=== PATIENT | male | born 1950 | race Caucasian/White ===

== ENCOUNTER 2018-08-08 01:08 | Outpatient (CLI) | payer MEDICARE, BC, SELFPAY ==
[2018-08-08 11:58] LABS: Anion Gap 9.6 mmol/L (3-11); BUN 14 mg/dL (7-18); CO2 27.4 mmol/L (21.0-32.0); CREATININE 1.14 mg/dL (0.70-1.30); Calcium 8.5 mg/dL (8.5-10.1); Chloride 103 mmol/L (98-107); Cholesterol 102 mg/dL (50-200); Glucose 91 mg/dL (70-100); HDL Cholesterol 39 mg/dL (40-60); LDL CHOLESTEROL 53 mg/dL (<100); Potassium 4.2 mmol/L (3.5-5.1); Sodium 140 mmol/L (136-145); Triglyceride 141 mg/dL (30-150)
== END 2018-08-08 01:28 ==
PROVIDERS: PCP Family Medicine; Visit Provider Family Medicine
DX: I10 Essential (primary) hypertension (principal)
CPT/HCPCS: 36415; 80048; 80061; 83721

== ENCOUNTER 2018-12-15 17:18 | Emergency (ER) | payer MEDICARE, BC, SELFPAY ==
[2018-12-15 17:46] VITALS: BP 149/72; PULSE 57; RESP 14; TEMP 36.3; O2SAT 97
--- NOTE | 2018-12-15 17:53 | DI.RAD_ITS ---
SYMPTOM/DIAGNOSIS: MEDIAL, LATERAL SWELLING, PAIN LEFT ANKLE: There is soft tissue swelling around the malleoli. There is a question of ankle mortise widening. No fracture or talar dome defect is seen. Heel spurs are noted. There are mild underlying degenerative changes. IMPRESSION: Soft tissue swelling and question of ankle mortise widening. No fracture is visible.
--- NOTE | 2018-12-15 17:53 | W.ED.GENAD ---
Discharge Plan Disposition Patient Disposition: HOME Condition: Improving Discharge Details Chief Complaint: Orthopedic Clinical Impression: Left ankle sprain Primary Care Provider: Basim Basilio ED Provider: Dakota Coats Home Meds and New Rx's Prescriptions: Continued amlodipine 5 mg tablet 5 mg PO DAILY RF: 0 flaxseed oil 1,000 mg capsule 1,000 mg PO DAILY RF: 0 atorvastatin 80 mg tablet 80 mg PO DAILY Qty: 90 RF: 4 oxybutynin chloride 5 mg tablet extended release 24hr 5 mg PO DAILY Qty: 90 RF: 4 pantoprazole 40 mg tablet,delayed release (DR/EC) 40 mg PO DAILY Qty: 90 RF: 4 clopidogrel [Plavix] 75 mg tablet 75 mg PO DAILY Qty: 90 RF: 4 metoprolol succinate 50 mg tablet extended release 24 hr 50 mg PO DAILY Qty: 90 RF: 4 vitamin B complex 1 EACH tablet 1 ea PO QAM RF: 0 folic acid 1 MG tablet 1 mg PO QAM RF: 0 cholecalciferol (vitamin D3) [Vitamin D3] 400 UNIT tablet 400 unit PO QAM RF: 0 nitroglycerin 0.4 MG tablet, sublingual 0.4 mg Buccal ONCE RF: 0 aspirin [Aspirin Low-Strength] 81 MG tablet,chewable 1 tab PO DAILY RF: 0 tamsulosin 0.4 mg capsule 0.8 mg PO DAILY Qty: 180 RF: 4 Discharge Instructions Instructions: Ankle Sprain (ED) Additional Instructions: Elevate above the level of the heart to reduce pain and swelling. May use lace up ankle stabilizer for 5-10 days time as needed. Ice to reduce discomfort. Return for any acute concern Medical Decision Making 68-year-old male presents from home after twisting his ankle walking down a flight of stairs yesterday. He has medial greater than lateral tenderness but is weightbearing. Differential diagnosis includes avulsion fracture versus sprain. Patient referred for x-ray which does not reveal any evidence of acute fracture. We will offer her a lace up ankle brace. He is stable for outpatient management of ankle sprain. HPI General Mode of arrival: ambulatory. Date/Time Provider Initiated Documentation: 12/15/18 17:20. Limitations to Documentation: no limitations. Information obtained by: patient. History of Present Illness 68 year old M presents to the emergency department with the chief complaint of Left ankle pain and swelling, described as moderate, Quality is described as aching, and is localized to the left and lower extremity. Patient reports no radiation. Patient started experiencing this day(s) and it has been constant. Rest improves symptom(s), Movement worsens symptoms . Patient did receive the following treatments prior to arrival, none Related Data Home Medications Medication Instructions Recorded Confirmed cholecalciferol (vitamin D3) 400 unit PO QAM 06/15/13 12/15/18 [Vitamin D3] folic acid 1 mg PO QAM 06/15/13 12/15/18 vitamin B complex 1 ea PO QAM 06/15/13 12/15/18 aspirin [Aspirin Low-Strength] 1 tab PO DAILY tab.chew 03/06/16 12/15/18 nitroglycerin 0.4 mg BUCCAL ONCE tab-cap 03/06/16 12/15/18 amlodipine 5 mg tablet 5 mg PO DAILY 07/31/18 12/15/18 atorvastatin 80 mg tablet 80 mg PO DAILY #90 tab 07/31/18 12/15/18 clopidogrel 75 mg tablet 75 mg PO DAILY #90 tab-cap 07/31/18 12/15/18 flaxseed oil 1,000 mg capsule 1,000 mg PO DAILY 07/31/18 12/15/18 metoprolol succinate ER 50 mg 50 mg PO DAILY #90 tab 07/31/18 12/15/18 tablet,extended release 24 hr oxybutynin chloride ER 5 mg 5 mg PO DAILY #90 tab-cap 07/31/18 12/15/18 tablet,extended release 24 hr pantoprazole 40 mg tablet,delayed 40 mg PO DAILY #90 tab 07/31/18 12/15/18 release tamsulosin 0.4 mg capsule 0.8 mg PO DAILY #180 tab-cap 08/01/18 12/15/18 Previous Rx's Medication Instructions Recorded atorvastatin 80 mg tablet 80 mg PO DAILY #90 tab 07/31/18 clopidogrel 75 mg tablet 75 mg PO DAILY #90 tab-cap 07/31/18 metoprolol succinate ER 50 mg 50 mg PO DAILY #90 tab 07/31/18 tablet,extended release 24 hr oxybutynin chloride ER 5 mg 5 mg PO DAILY #90 tab-cap 07/31/18 tablet,extended release 24 hr pantoprazole 40 mg tablet,delayed 40 mg PO DAILY #90 tab 07/31/18 release tamsulosin 0.4 mg capsule 0.8 mg PO DAILY #180 tab-cap 08/01/18 Allergies Allergy/AdvReac Type Severity Reaction Status Date / Time No Known Allergies Allergy Unverified 12/15/18 17:49 General Stated Complaint: Orthopedic MALCOM: 4 Review of Systems Review of Systems 4 systems reviewed and otherwise negative [facility] Medical History BPH (benign prostatic hyperplasia) CAD (coronary artery disease) Hyperlipidemia Hypertension SCOTT (obstructive sleep apnea) Surgical History Correction, Hammertoe (~08/2010) UPPP (Uvulopalatopharyngoplasty) Family History Mother Diabetes Essential hypertension Alzheimer disease Heart disease Hyperlipidemia Father Essential hypertension Heart disease Hyperlipidemia Sister Essential hypertension Melanoma Brother Essential hypertension Maternal Grandfather Diabetes Stroke Maternal Grandmother No problems noted. Paternal Grandfather Heart disease Stroke Paternal Grandmother Diabetes Stroke Sister No problems noted. Social History household members: other details: 3 current occupational status: retired pets and animals: Yes pets and animals: cat(s) frequency: 1-2 times per week duration: 15-30 minutes/day Smoking/Tobacco Use Status: Never alcohol intake: current alcohol intake frequency: a few times a week substance use type: does not use yocasta/hindu: Confucianist special yocasta needs: No Exam Narrative Exam Narrative: GEN: awake, alert, oriented 3. Pleasant, well groomed, interactive. HEAD: Normocephalic, atraumatic ENT: Mucous membranes moist, oropharynx unremarkable, External ear exam unremarkable EYES: PERRL, EOMI EXT: Full ROM, left medial greater than lateral malleoli are swollen and tender. Range of motion intact. 2+ DP bilaterally. Sensation intact throughout Neuro: Grossly normal neurologic exam, conversant, interactive. Psych: Speech fluent, thoughts congruent, affect normal Course Vital Signs Temperature 36.3 C L 12/15/18 17:46 Pulse 57 L 12/15/18 17:46 Respiratory Rate 14 12/15/18 17:46 Blood Pressure 149/72 H 12/15/18 17:46 Pulse Oximetry 97 12/15/18 17:46 Temperature 36.3 C L 12/15/18 17:46 Temperature Source Temporal Artery Scan 12/15/18 17:46 Pulse 57 L 12/15/18 17:46 Respiratory Rate 14 12/15/18 17:46 Respiratory Effort Non-Labored 12/15/18 17:47 Blood Pressure 149/72 H 12/15/18 17:46 Pulse Oximetry 97 12/15/18 17:46 Oxygen Delivery Method Room Air 12/15/18 17:46 Oxygen Flow Rate 0 12/15/18 17:46 Pain Level 3 12/15/18 17:51
--- NOTE | 2018-12-15 17:56 | ED.GENADUL_ITS ---
Discharge Plan Disposition Patient Disposition: HOME Condition: Improving Discharge Details Chief Complaint: Orthopedic Clinical Impression: Left ankle sprain Primary Care Provider: Basim Basilio ED Provider: Dakota Coats Home Meds and New Rx's Prescriptions: Continued amlodipine 5 mg tablet 5 mg PO DAILY RF: 0 flaxseed oil 1,000 mg capsule 1,000 mg PO DAILY RF: 0 atorvastatin 80 mg tablet 80 mg PO DAILY Qty: 90 RF: 4 oxybutynin chloride 5 mg tablet extended release 24hr 5 mg PO DAILY Qty: 90 RF: 4 pantoprazole 40 mg tablet,delayed release (DR/EC) 40 mg PO DAILY Qty: 90 RF: 4 clopidogrel [Plavix] 75 mg tablet 75 mg PO DAILY Qty: 90 RF: 4 metoprolol succinate 50 mg tablet extended release 24 hr 50 mg PO DAILY Qty: 90 RF: 4 vitamin B complex 1 EACH tablet 1 ea PO QAM RF: 0 folic acid 1 MG tablet 1 mg PO QAM RF: 0 cholecalciferol (vitamin D3) [Vitamin D3] 400 UNIT tablet 400 unit PO QAM RF: 0 nitroglycerin 0.4 MG tablet, sublingual 0.4 mg Buccal ONCE RF: 0 aspirin [Aspirin Low-Strength] 81 MG tablet,chewable 1 tab PO DAILY RF: 0 tamsulosin 0.4 mg capsule 0.8 mg PO DAILY Qty: 180 RF: 4 Discharge Instructions Instructions: Ankle Sprain (ED) Additional Instructions: Elevate above the level of the heart to reduce pain and swelling. May use lace up ankle stabilizer for 5-10 days time as needed. Ice to reduce discomfort. Return for any acute concern Medical Decision Making 68-year-old male presents from home after twisting his ankle walking down a flight of stairs yesterday. He has medial greater than lateral tenderness but is weightbearing. Differential diagnosis includes avulsion fracture versus sprain. Patient referred for x-ray which does not reveal any evidence of acute fracture. We will offer her a lace up ankle brace. He is stable for outpatient management of ankle sprain. HPI General Mode of arrival: ambulatory . Date/Time Provider Initiated Documentation: 12/15/18 17:20 . Limitations to Documentation: no limitations . Information obtained by: patient . History of Present Illness 68 year old M presents to the emergency department with the chief complaint of Left ankle pain and swelling, described as moderate, Quality is described as aching, and is localized to the left and lower extremity. Patient reports no radiation. Patient started experiencing this day(s) and it has been constant. Rest improves symptom(s), Movement worsens symptoms . Patient did receive the following treatments prior to arrival, none Related Data Home Medications Medication Instructions Recorded Confirmed cholecalciferol (vitamin D3) 400 unit PO QAM 06/15/13 12/15/18 [Vitamin D3] folic acid 1 mg PO QAM 06/15/13 12/15/18 vitamin B complex 1 ea PO QAM 06/15/13 12/15/18 aspirin [Aspirin Low-Strength] 1 tab PO DAILY tab.chew 03/06/16 12/15/18 nitroglycerin 0.4 mg BUCCAL ONCE tab-cap 03/06/16 12/15/18 amlodipine 5 mg tablet 5 mg PO DAILY 07/31/18 12/15/18 atorvastatin 80 mg tablet 80 mg PO DAILY #90 tab 07/31/18 12/15/18 clopidogrel 75 mg tablet 75 mg PO DAILY #90 tab-cap 07/31/18 12/15/18 flaxseed oil 1,000 mg capsule 1,000 mg PO DAILY 07/31/18 12/15/18 metoprolol succinate ER 50 mg 50 mg PO DAILY #90 tab 07/31/18 12/15/18 tablet,extended release 24 hr oxybutynin chloride ER 5 mg 5 mg PO DAILY #90 tab-cap 07/31/18 12/15/18 tablet,extended release 24 hr pantoprazole 40 mg tablet,delayed 40 mg PO DAILY #90 tab 07/31/18 12/15/18 release tamsulosin 0.4 mg capsule 0.8 mg PO DAILY #180 tab-cap 08/01/18 12/15/18 Previous Rx's Medication Instructions Recorded atorvastatin 80 mg tablet 80 mg PO DAILY #90 tab 07/31/18 clopidogrel 75 mg tablet 75 mg PO DAILY #90 tab-cap 07/31/18 metoprolol succinate ER 50 mg 50 mg PO DAILY #90 tab 07/31/18 tablet,extended release 24 hr oxybutynin chloride ER 5 mg 5 mg PO DAILY #90 tab-cap 07/31/18 tablet,extended release 24 hr pantoprazole 40 mg tablet,delayed 40 mg PO DAILY #90 tab 07/31/18 release tamsulosin 0.4 mg capsule 0.8 mg PO DAILY #180 tab-cap 08/01/18 Allergies Allergy/AdvReac Type Severity Reaction Status Date / Time No Known Allergies Allergy Unverified 12/15/18 17:49 General Stated Complaint: Orthopedic MALCOM: 4 Review of Systems Review of Systems 4 systems reviewed and otherwise negative [facility] Medical History BPH (benign prostatic hyperplasia) CAD (coronary artery disease) Hyperlipidemia Hypertension SCOTT (obstructive sleep apnea) Surgical History Correction, Hammertoe (~08/2010) UPPP (Uvulopalatopharyngoplasty) Family History Mother Diabetes Essential hypertension Alzheimer disease Heart disease Hyperlipidemia Father Essential hypertension Heart disease Hyperlipidemia Sister Essential hypertension Melanoma Brother Essential hypertension Maternal Grandfather Diabetes Stroke Maternal Grandmother No problems noted. Paternal Grandfather Heart disease Stroke Paternal Grandmother Diabetes Stroke Sister No problems noted. Social History household members: other details: 3 current occupational status: retired pets and animals: Yes pets and animals: cat(s) frequency: 1-2 times per week duration: 15-30 minutes/day Smoking/Tobacco Use Status: Never alcohol intake: current alcohol intake frequency: a few times a week substance use type: does not use yocasta/mormonism: Episcopal special yocasta needs: No Exam Narrative Exam Narrative: GEN: awake, alert, oriented 3. Pleasant, well groomed, interactive. HEAD: Normocephalic, atraumatic ENT: Mucous membranes moist, oropharynx unremarkable, External ear exam unremarkable EYES: PERRL, EOMI EXT: Full ROM, left medial greater than lateral malleoli are swollen and tender. Range of motion intact. 2+ DP bilaterally. Sensation intact throughout Neuro: Grossly normal neurologic exam, conversant, interactive. Psych: Speech fluent, thoughts congruent, affect normal Course Vital Signs Temperature 36.3 C L 12/15/18 17:46 Pulse 57 L 12/15/18 17:46 Respiratory Rate 14 12/15/18 17:46 Blood Pressure 149/72 H 12/15/18 17:46 Pulse Oximetry 97 12/15/18 17:46 Temperature 36.3 C L 12/15/18 17:46 Temperature Source Temporal Artery Scan 12/15/18 17:46 Pulse 57 L 12/15/18 17:46 Respiratory Rate 14 12/15/18 17:46 Respiratory Effort Non-Labored 12/15/18 17:47 Blood Pressure 149/72 H 12/15/18 17:46 Pulse Oximetry 97 12/15/18 17:46 Oxygen Delivery Method Room Air 12/15/18 17:46 Oxygen Flow Rate 0 12/15/18 17:46 Pain Level 3 12/15/18 17:51
--- NOTE | 2018-12-15 18:27 | DI.VRAD_ITS ---
EXAM: XR Left Ankle Complete, 3 or more Views EXAM DATE/TIME: 12/15/2018 6:10 PM CLINICAL HISTORY: 68 years old, male; Injury or trauma; Fall; Initial encounter; Swelling (edema); Ankle; Left; Injury details: Medial discoloration TECHNIQUE: XR Left ankle 3 or more views. COMPARISON: No relevant prior studies available. FINDINGS: Bones/joints: There is a large Achilles tendon spur. There is an inferior calcaneal spur. There is no acute fracture or dislocation. Soft tissues: There is soft tissue swelling about the ankle. This is suspicious for a soft tissue injury. Clinical correlation is recommended. IMPRESSION: Soft tissue swelling about the ankle. This is suspicious for a soft tissue injury. This can be followed up with an MRI examination of the ankle if clinically warranted. Spurs as described above. Dictated and Authenticated by: Justin Schultz MD. Ordering:NILESH Duncan MD
== END 2018-12-15 18:44 | disposition home or self-care (01) ==
PROVIDERS: Emergency Provider Emergency Medicine; PCP Family Medicine
DX: S93.402A Sprain of unspecified ligament of left ankle, initial encounter (principal); X50.1XXA Overexertion from prolonged static or awkward postures, initial encounter
CPT/HCPCS: 29515; 99283; 73610; 99282; L1902

== ENCOUNTER 2019-08-06 01:40 | Outpatient (CLI) | payer MEDICARE, BC, SELFPAY ==
[2019-08-06 12:26] LABS: Anion Gap 11.3 mmol/L (3-11); BUN 18 mg/dL (7-18); CO2 25.7 mmol/L (21.0-32.0); CREATININE 1.21 mg/dL (0.70-1.30); Calcium 8.6 mg/dL (8.5-10.1); Chloride 105 mmol/L (98-107); Estimated GFR 59.12 (mL/min/1.73m2); Glucose 105 mg/dL (70-100); Potassium 4.4 mmol/L (3.5-5.1); Sodium 142 mmol/L (136-145)
== END 2019-08-06 02:00 ==
PROVIDERS: PCP Family Medicine; Visit Provider Family Medicine
DX: I10 Essential (primary) hypertension (principal)
CPT/HCPCS: 36415; 80048

== ENCOUNTER → 2019-10-23 09:30 | Outpatient (BNVA) | payer MEDICARE, BC, SELFPAY | PROVIDERS: PCP Family Medicine; Referring Provider Family Medicine; Visit Provider Physical Therapy Assistant | DX: Z12.11 Encounter for screening for malignant neoplasm of colon (principal); I10 Essential (primary) hypertension; Z79.01 Long term (current) use of anticoagulants; Z95.5 Presence of coronary angioplasty implant and graft ==

== ENCOUNTER 2019-11-06 09:09 | Day surgery (SDC) | payer MEDICARE, BC, SELFPAY ==
[2019-11-06 09:40] VITALS: BP 141/93; PULSE 83; RESP 16; TEMP 36.1; O2SAT 97
[2019-11-06] MEDS: Lactated Ringers 1,000 ML 80 ML IV (09:48)
--- NOTE | 2019-11-06 10:13 | W.PM.DSUDISC ---
Discharge Plan Disposition Patient Disposition: HOME Condition: Good Discharge Details Reason For Visit: Colonoscopy Attending Provider: Jess Hernandez Primary Care Provider: Basim Basilio Home Meds and New Rx's Prescriptions: Continued flaxseed oil 1,000 mg capsule 1,000 mg PO DAILY RF: 0 amlodipine 5 mg tablet 5 mg PO DAILY Qty: 90 RF: 4 atorvastatin 80 mg tablet 80 mg PO DAILY Qty: 90 RF: 4 clopidogrel [Plavix] 75 mg tablet 75 mg PO DAILY Qty: 90 RF: 4 metoprolol succinate 50 mg tablet extended release 24 hr 75 mg PO DAILY Qty: 135 RF: 4 oxybutynin chloride 5 mg tablet extended release 24hr 5 mg PO DAILY Qty: 90 RF: 4 pantoprazole 40 mg tablet,delayed release (DR/EC) 40 mg PO DAILY Qty: 90 RF: 4 tamsulosin 0.4 mg capsule 0.8 mg PO DAILY Qty: 180 RF: 4 vitamin B complex 1 EACH tablet 1 ea PO QAM RF: 0 folic acid 1 MG tablet 1 mg PO QAM RF: 0 cholecalciferol (vitamin D3) [Vitamin D3] 400 UNIT tablet 400 unit PO QAM RF: 0 nitroglycerin 0.4 MG tablet, sublingual 0.4 mg Buccal ONCE RF: 0 aspirin [Aspirin Low-Strength] 81 MG tablet,chewable 1 tab PO DAILY RF: 0 Discontinued polyethylene glycol 3350 17 gram/dose powder 238 g PO ONCE Qty: 238 RF: 0 bisacodyl [Dulcolax (bisacodyl)] 5 mg tablet,delayed release (DR/EC) 5 mg PO ONCE Qty: 4 RF: 0 Discharge Instructions Additional Instructions: Findings: Your colonoscopy showed mild diverticulosis Follow up: No further screening colonoscopy is needed but can be considered if you develop new symptoms. Please call if you develop: fevers >101.5 Nausea or Vomiting Abdominal pain that is not transient DAY SURGERY UNIT POST COLONOSCOPY INSTRUCTIONS 1. Because there will be medication in your system for the next 24 hours, you may feel a little sleepy. Your coordination will be affected. Therefore: a. Do not drive or operate dangerous equipment for 24 hours. b. Do not drink alcohol beverages for 24 hours (not even beer). c. Plan to go home and rest for the day. 2. Generally there are no restrictions on your activity after a day or so has gone by, but you may feel a bit fatigued for a few days. 3 After you arrive home you may have a light meal and return to a normal diet as you can tolerate it without feeling sick to your stomach. 4. After surgery, you may feel pain or discomfort. This should be only transient, but if it persists please contact your doctor. 5. If there are any questions regarding the findings of your procedure, please feel free to contact your doctor. 6. If you are unable to contact your doctor with a problem, contact the hospital at [phone]. 7. Continue all your regular medications unless directed otherwise. I understand the above instructions and have no questions. Signature of Patient or Responsible Adult Escort Date/Time Name of Responsible Adult Escort Signature of Nurse Date/Time Activity:: Activity as Tolerated Diet:: As Tolerated Discharge Orders Discharge Orders: Discharge Order (Routine); Ordered 11/06/19 Ordered By: Jess Hernandez DS: Diagnosis Discharge Diagnosis (1) Diverticulosis: Status: Acute
[2019-11-06 12:15] VITALS: BP 128/85; PULSE 65; RESP 18; TEMP 36.3; O2SAT 96
--- NOTE | 2019-11-10 10:28 | COLE_ITS ---
REPORT OF OPERATIVE PROCEDURE DATE OF PROCEDURE November 06, 2019 PREOPERATIVE DIAGNOSIS Screening. POSTOPERATIVE DIAGNOSIS Diverticulosis. PROCEDURE Colonoscopy. SURGEON Jess Hernandez M.D. ANESTHESIA General. INDICATIONS This is a 69-year-old man who presents for a screening colonoscopy. His last colonoscopy in 2008 was normal. He has no family history of colon cancer or symptoms. PROCEDURE The patient was placed in the left Lyons position. Propofol was titrated to sedation. Digital rectal e xamination revealed no abnormalities. The scope was advanced to the cecum without difficulty. The ile ocecal valve and appendiceal orifice were clearly identified. The scope was slowly withdrawn with no abnormalities seen within the ascending, transverse, descending and sigmoid colon or rectum, includin g on retroflexed view. He was noted to have a mild amount of diverticular change in the sigmoid regio n. He tolerated the procedure well and was stable to Recovery. He will not need a further screening colonoscopy, but this can be reconsidered if symptoms arise. CC: Basim Basilio M.D.
== END 2019-11-06 12:40 | disposition home or self-care (01) ==
PROVIDERS: PCP Family Medicine; Visit Provider Surgery
PROC: 0DJD8ZZ Inspection of Lower Intestinal Tract, Via Natural or Artificial Opening Endoscopic (ICD-10-PCS; CPT 45378; principal; 2019-11-06 10:30)
DX: Z12.11 Encounter for screening for malignant neoplasm of colon (principal); K57.30 Diverticulosis of large intestine without perforation or abscess without bleeding; I10 Essential (primary) hypertension; G47.33 Obstructive sleep apnea (adult) (pediatric)
CPT/HCPCS: G0121; J2250; J3010

== ENCOUNTER 2020-08-15 03:16 | Outpatient (CLI) | payer MEDICARE, BC, SELFPAY ==
[2020-08-15 12:29] LABS: Anion Gap 4.1 mmol/L (3-11); BUN 14 mg/dL (7-18); CO2 31.9 mmol/L (21.0-32.0); CREATININE 1.18 mg/dL (0.70-1.30); Calcium 8.9 mg/dL (8.5-10.1); Chloride 103 mmol/L (98-107); Glucose 88 mg/dL (74-106); Potassium 4.3 mmol/L (3.5-5.1); Sodium 139 mmol/L (136-145)
== END 2020-08-15 03:36 ==
PROVIDERS: PCP Nurse Practitioner; Visit Provider Family Medicine
DX: I10 Essential (primary) hypertension (principal)
CPT/HCPCS: 36415; 80048

== ENCOUNTER 2021-09-26 09:54 | Outpatient (CLI) | payer MEDICARE, BC, SELFPAY ==
[2021-09-27 02:31] LABS: CREATININE 1.3 mg/dL (0.70-1.30); Calculated LDL 51 mg/dL (<100); Cholesterol 114 mg/dL (<200); Estimated GFR 54.11 (mL/min/1.73m2); HDL Cholesterol 47 mg/dL (40-60); Triglyceride 81 mg/dL (<150)
== END 2021-09-26 09:55 | disposition home or self-care (01) ==
LOC: LOS 09:54
PROVIDERS: PCP Nurse Practitioner; Visit Provider Nurse Practitioner
DX: I10 Essential (primary) hypertension (principal); I25.10 Atherosclerotic heart disease of native coronary artery without angina pectoris
CPT/HCPCS: 36415; 80061; 82565

== ENCOUNTER 2021-09-27 00:36 | Outpatient (CLI) | payer MEDICARE, BC, SELFPAY ==
--- NOTE | 2021-09-27 06:45 | DI.RAD_ITS ---
Exam(s) XR KNEE LT 4V AP,LAT,YADIEL,PAT EXAM: XR KNEE LT 4V AP,LAT,YADIEL,PAT CLINICAL HISTORY: fall, pain on patella,W19.XXXA. TECHNIQUE: 2D digital imaging was performed. COMPARISON: CR XR ANKLE LT COMPLETE from 12/15/2018 FINDINGS: There is no evidence of fracture nor prominent joint effusion. There are moderate degenerative austin es in all 3 compartments. Mild joint space narrowing. Marginal osteophytes in all 3 compartments. No osseous lesions. IMPRESSION: Moderate degenerative changes. DATA REPOSITORY: RADIATION DOSE DELIVERED:
== END 2021-09-27 00:56 ==
PROVIDERS: PCP Nurse Practitioner; Visit Provider Nurse Practitioner
DX: W19.XXXA Unspecified fall, initial encounter (principal); M25.562 Pain in left knee; M17.12 Unilateral primary osteoarthritis, left knee
CPT/HCPCS: 73564

== ENCOUNTER 2022-05-29 02:07 | Outpatient (CLI) | payer MEDICARE, BC, SELFPAY ==
[2022-05-29 01:17] LABS: COVID-19 RT-PCR UVMMC Result Negative (Negative)
== END 2022-05-29 02:08 | disposition home or self-care (01) ==
LOC: LBO 02:08
PROVIDERS: PCP Nurse Practitioner; Visit Provider Nurse Practitioner Family
DX: Z20.822 Contact with and (suspected) exposure to COVID-19 (principal)
CPT/HCPCS: U0003

== ENCOUNTER 2023-03-18 01:27 | Outpatient (CLI) | payer MEDICARE, BC, SELFPAY ==
--- NOTE | 2023-03-18 07:15 | DI.RAD_ITS ---
Exam(s) XR CHEST 2V PA LATERAL EXAM: XR CHEST 2V PA LATERAL CLINICAL HISTORY: increased cough,r05.9 TECHNIQUE: 2D digital imaging was performed of the chest. Two images were obtained. PA and lateral views were obtained. COMPARISON: CR PORTABLE CHEST ONE VIEW from 02/28/2016 FINDINGS: MEDIASTINUM: Normal. HEART: Normal. PULMONARY VASCULATURE: Normal. LUNGS: Clear. PLEURAL SPACE: No pleural effusion or pneumothorax. BONE:Within normal limits for the patient's age. OTHER FINDINGS:Normal. IMPRESSION: No acute pulmonary findings. DATA REPOSITORY: RADIATION DOSE DELIVERED:
== END 2023-03-18 01:47 ==
PROVIDERS: PCP Nurse Practitioner Family; Visit Provider Nurse Practitioner Family
DX: R05.9 Cough, unspecified (principal)
CPT/HCPCS: 71046

== ENCOUNTER 2023-03-26 02:54 | Outpatient (CLI) | payer MEDICARE, BC, SELFPAY ==
[2023-03-26] MEDS: Albuterol HFA 18 GM 200 PUFF INH IH (11:28)
[2023-03-26] MEDS: Inhaler, Assist Device 1 EACH MC (11:29)
--- NOTE | 2023-03-26 14:40 | W.PFT ---
Date of service: 03/26/23 Time of Service: 10:00 Pulmonary Function Test Result Indications: Cough Interpretation Spirometry: There is no airflow limitation. There is no significant bronchodilator response. Lung Volumes: Normal lung volumes Diffusion Capacity: Normal diffusion Airway Pressure: Normal airways resistance. Impression Normal pulmonary function testing Clinical Correlation therefore is recommended.
== END 2023-03-26 02:55 | disposition home or self-care (01) ==
LOC: RT 02:54
PROVIDERS: PCP Nurse Practitioner Family; Visit Provider Nurse Practitioner Family
DX: R05.9 Cough, unspecified (principal)
CPT/HCPCS: 94060; 94726; 94729

== ENCOUNTER 2023-07-31 03:34 | Outpatient (CLI) | payer MEDICARE, BC, SELFPAY ==
[2023-07-31 15:28] LABS: ALT 45 U/L (16-63); AST 30 U/L (15-37); Albumin 3.5 g/dL (3.4-5.0); Alkaline Phosphatase 89 U/L (46-116); Anion Gap 9.7 mmol/L (3-11); BUN 15 mg/dL (7-18); Bilirubin, Total 0.6 mg/dL (0.2-1.0); CO2 24.3 mmol/L (21.0-32.0); CREATININE 1.4 mg/dL (0.70-1.30); Calculated LDL 33 mg/dL (<100); Chloride 104 mmol/L (98-107); Cholesterol 97 mg/dL (<200); Estimated GFR 52.41 (mL/min/1.73m2); Glucose 136 mg/dL (74-106); HDL Cholesterol 38 mg/dL (40-60); Potassium 3.9 mmol/L (3.5-5.1); Sodium 138 mmol/L (136-145); Total Protein 7.5 g/dL (6.4-8.2); Triglyceride 131 mg/dL (<150)
[2023-07-31 15:42] LABS: Calcium 8.7 mg/dL (8.5-10.1)
== END 2023-07-31 03:35 | disposition home or self-care (01) ==
LOC: LBO 03:34
PROVIDERS: PCP Nurse Practitioner Family; Visit Provider Nurse Practitioner Family
DX: E78.5 Hyperlipidemia, unspecified (principal); R73.09 Other abnormal glucose
CPT/HCPCS: 36415; 80053; 80061

== ENCOUNTER 2023-08-26 05:05 | Outpatient (CLI) | payer MEDICARE, BC, SELFPAY | END 2023-08-26 05:06 | disposition home or self-care (01) | PROVIDERS: PCP Nurse Practitioner Family; Visit Provider Nurse Practitioner Family | DX: R73.9 Hyperglycemia, unspecified (principal) | CPT/HCPCS: 36415; 83036 ==

== ENCOUNTER → 2023-11-01 00:49 | Outpatient (CLI) | payer MEDICARE, BC, SELFPAY ==
--- NOTE | 2023-11-01 07:30 | DI.RAD_ITS ---
Exam(s) RF BARIUM SWALLOW EXAM: RF BARIUM SWALLOW CLINICAL HISTORY: Dysphagia,R13.10 TECHNIQUE: 2D and realtime digital imaging was performed. CONTRAST MATERIAL: Thick and thin barium and barium tablet were administered. COMPARISON: CR XR CHEST 2V PA LATERAL from 03/18/2023 FINDINGS: The PA and lateral chest films show normal heart size and clear lung [place]. The lateral public transit bus driver view of the neck is shows degenerative changes. Esophagus: The patient swallowed barium without difficulty. Noevidence for mucosal erosions. Nofold thickening. No mass is visible. Nostricture. Motility: There is a normal primary stripping wave. No tertiary contractions were noted. There is tiny sliding hiatal hernia. Mild gastroesophageal reflux was observed during the exam. IMPRESSION: Tiny sliding hiatal hernia. Mild gastroesophageal reflux. RADIATION DOSE DELIVERED: jesús Dawn=25.8 mGy
[2023-11-01] MEDS: Barium Sulfate 700 MG TAB PO (10:43)
[2023-11-01] MEDS: Barium Sulfate 60% W/V 355 ML BTL PO (10:44)
[2023-11-01] MEDS: Barium Sulfate 98% W/W 140 ML BTL PO (10:44)
== END ==
PROVIDERS: PCP Nurse Practitioner Family; Visit Provider Registered Nurse Maternal Newborn
DX: R05.9 Cough, unspecified (principal); R13.10 Dysphagia, unspecified; K44.9 Diaphragmatic hernia without obstruction or gangrene; K21.9 Gastro-esophageal reflux disease without esophagitis
CPT/HCPCS: 74221; J3490

== ENCOUNTER 2024-08-25 10:06 | Outpatient (REF) | payer MEDICARE, BC, SELFPAY ==
[2024-08-25 12:23] LABS: ALT 32 U/L (16-63); AST 22 U/L (15-37); Albumin 3.7 g/dL (3.4-5.0); Alkaline Phosphatase 82 U/L (46-116); Anion Gap 13.7 mmol/L (3-11); BUN 13 mg/dL (7-18); Bilirubin, Total 1.05 mg/dL (0.2-1.0); CO2 23.3 mmol/L (21.0-32.0); CREATININE 1.2 mg/dL (0.70-1.30); Calcium 8.8 mg/dL (8.5-10.1); Calculated LDL 32 mg/dL (<100); Chloride 105 mmol/L (98-107); Cholesterol 91 mg/dL (<200); Estimated GFR 62.67 (mL/min/1.73m2); Glucose 132 mg/dL (74-106); HDL Cholesterol 46 mg/dL (40-60); Sodium 142 mmol/L (136-145); Triglyceride 66 mg/dL (<150)
[2024-08-25 12:28] LABS: Hemoglobin A1C 5.8 % (<5.7)
== END 2024-08-25 10:07 | disposition home or self-care (01) ==
LOC: LBN 10:06
PROVIDERS: PCP Nurse Practitioner Family; Visit Provider Family Medicine
DX: E78.5 Hyperlipidemia, unspecified (principal); R73.03 Prediabetes
CPT/HCPCS: 80053; 80061; 83036

== ENCOUNTER 2025-02-25 01:01 | Outpatient (CLI) | payer MEDICARE, BC, SELFPAY ==
--- NOTE | 2025-02-25 08:30 | DI.RAD_ITS ---
Exam(s) XR SHOULDER RT COMPLETE 2+V EXAM: XR SHOULDER RT COMPLETE 2+V CLINICAL HISTORY: no relief with PT, RT SHOULDER PAIN, M25.511. TECHNIQUE: 2D digital imaging was performed. Five views. COMPARISON: No exams were available for comparison FINDINGS: BONES: No acute fracture is present. No bony destructive lesion is seen. Spurring at the tip of the acromion. Mild spurring at the greater tuberosity. JOINTS: No dislocation present. Spurring at the AC joint and margin of the glenoid. Mild glenohumer al joint space narrowing. SOFT TISSUE: Normal. IMPRESSION: [id number] degenerative changes. DATA REPOSITORY: RADIATION DOSE DELIVERED:
== END 2025-02-25 01:21 ==
LOC: DI 01:01
PROVIDERS: PCP Nurse Practitioner Family; Visit Provider Nurse Practitioner Family
DX: M19.011 Primary osteoarthritis, right shoulder (principal)
CPT/HCPCS: 73030

== ENCOUNTER → 2025-03-16 13:37 | Outpatient (BNVA) | payer MEDICARE, BC, SELFPAY | PROVIDERS: PCP Nurse Practitioner Family; Referring Provider Nurse Practitioner Family; Visit Provider Student in an Organized Health Care Education/Training Program | DX: M19.011 Primary osteoarthritis, right shoulder (principal) | CPT/HCPCS: 99203 ==

== ENCOUNTER 2025-04-07 01:57 | Outpatient (CLI) | payer MEDICARE, BC, SELFPAY ==
--- NOTE | 2025-04-07 11:29 | DI.RAD_ITS ---
Exam(s) RF JOINT INJ. FLUORO GUID RAD EXAM: RF JOINT INJ. FLUORO GUID RAD CLINICAL HISTORY: R SHOULDER PAIN,fluoro guided injection,arthritis rt glenohumeral joint,. The Pat ient has had persistent right shoulder pain. Noninvasive measures have been tried. To serve as both diagnostic and therapeutic, an injection under fluoroscopy was recommended. The risks of the proced ure were discussed with their Orthopedic provider and the patient elected to proceed. TECHNIQUE: 2D and realtime digital imaging was performed. CONTRAST MATERIAL: Water soluble contrast was utilized. COMPARISON: No exams were available for comparison FINDINGS: The Patient was greeted in the fluoroscopy room. The correct side was identified and the consent was reviewed with the patient and was signed. The patient was properly positioned on the fluoroscopy ta ble. The right shoulderwas then prepped and draped. The right shoulder injection starting point was identified by the bony landmarks and fluoroscopy. The skin and soft tissue in the tract of the inje ction was anesthetized with 1% Bupivacaine. A spinal needle was then inserted into the right shoulde r joint at the level of the glenohumeral joint under fluoroscopic guidance. A small amount of Omnipa que solution was injected to confirm intraarticular placement. Once confirmed, the right shoulder wa s injected with 5cc of a solution containing 0.5% Bupivacaiine and 40 mg of Depo-Medrol. A bandaid w as placed on the injection site. The patient tolerated the procedure well and left the department in good condition. IMPRESSION: Successful right shoulder injection. RADIATION DOSE DELIVERED: Ka,r=2.01 mGy
[2025-04-07] MEDS: Bupivacaine 0.5% Pres-Free 10 ML VIAL IJ (11:43)
[2025-04-07] MEDS: methylPREDNISolone ACETATE 40 MG/ML VIAL IM (11:43)
[2025-04-07] MEDS: Omnipaque 300 MG/ML 10 ML BTL IJ (11:44)
== END 2025-04-07 02:17 ==
LOC: DI 01:57
PROVIDERS: PCP Nurse Practitioner Family; Visit Provider Student in an Organized Health Care Education/Training Program
DX: M19.011 Primary osteoarthritis, right shoulder (principal)
CPT/HCPCS: 20610; 77002; J0665; J1010

== ENCOUNTER 2025-08-27 12:43 | Outpatient (REF) | payer MEDICARE, BC, SELFPAY ==
[2025-08-27 16:03] LABS: ALT 36 U/L (16-63); AST 19 U/L (15-37); Albumin 3.7 g/dL (3.4-5.0); Alkaline Phosphatase 101 U/L (46-116); Anion Gap 11.6 mmol/L (3-11); BUN 10 mg/dL (7-18); Bilirubin, Total 0.6 mg/dL (0.2-1.0); CO2 24.4 mmol/L (21.0-32.0); Calcium 8.5 mg/dL (8.5-10.1); Calculated LDL 34 mg/dL (<100); Chloride 106 mmol/L (98-107); Cholesterol 82 mg/dL (<200); Estimated GFR 69.14 (mL/min/1.73m2); Glucose 99 mg/dL (74-106); HDL Cholesterol 40 mg/dL (>or=40); Potassium 4.5 mmol/L (3.5-5.1); Sodium 142 mmol/L (136-145); Total Protein 7.0 g/dL (6.4-8.2); Triglyceride 42 mg/dL (<150)
== END 2025-08-27 12:44 | disposition home or self-care (01) ==
LOC: LBN 12:43
PROVIDERS: PCP Nurse Practitioner Family; Visit Provider Nurse Practitioner Family
DX: E78.5 Hyperlipidemia, unspecified (principal)
CPT/HCPCS: 80053; 80061

== ENCOUNTER → 2025-10-20 01:21 | Outpatient (CLI) | payer MEDICARE, BC, SELFPAY ==
--- NOTE | 2025-10-20 14:56 | DI.RAD_ITS ---
Exam(s) RF JOINT INJ. FLUORO GUID RAD EXAM: RF JOINT INJ. FLUORO GUID RAD CLINICAL HISTORY: R SHOULDER PAIN,fluoro guided injection,m19.011,arthritis rt glenohumeral. The Patient has had persistent pain. Noninvasive measures have been tried. To serve as both diagnostic and therapeutic, an injection under fluoroscopy was recommended. The risks of the procedure were discussed with their Orthopedic provider and the patient elected to proceed. TECHNIQUE: 2D and realtime digital imaging was performed. CONTRAST MATERIAL: Water soluble contrast was utilized. COMPARISON: No exams were available for comparison FINDINGS: The Patient was greeted in the fluoroscopy room. The correct side was identified and the consent was reviewed with the patient and was signed. The patient was properly positioned on the fluoroscopy table. The right shoulderwas then prepped and draped. The right shoulder injection starting point was identified by the bony landmarks and fluoroscopy. The skin and soft tissue in the tract of the injection was anesthetized with 0.25% Bupivacaine. A spinal needle was then inserted into the right shoulder joint at the level of the glenohumeral joint under fluoroscopic guidance. A small amount of Omnipaque solution was injected to confirm intraarticular placement. Once confirmed, the right shoulder was injected with 5cc of a solution containing 0.25% Bupivacaine and 40 mg of Depo-Medrol. A bandaid was placed on the injection site. The patient tolerated the procedure well and left the department in good condition. IMPRESSION: Successful right shoulder injection. RADIATION DOSE DELIVERED: Ka,r=2.82 mGy
[2025-10-20] MEDS: Bupivacaine 0.25% Pres-Free 10 ML VIAL IJ (15:39)
[2025-10-20] MEDS: Omnipaque 300 MG/ML 10 ML BTL IJ (15:40)
[2025-10-20] MEDS: methylPREDNISolone ACETATE 40 MG/ML VIAL IM (15:41)
== END ==
LOC: DI 01:21
PROVIDERS: PCP Nurse Practitioner Family; Visit Provider Student in an Organized Health Care Education/Training Program
DX: M19.011 Primary osteoarthritis, right shoulder (principal)
CPT/HCPCS: 20610; 77002; J0665; J1010